=== PATIENT | female | born 1975 | race Caucasian/White ===

== ENCOUNTER 2022-08-16 08:29 | Outpatient (CLI) | payer OTHER, SELFPAY ==
--- NOTE | ~2022-08-16 | MM_ITS ---
EXAMINATION: MM screening yu BI w ying HISTORY: Screening mammogram TECHNIQUE: Craniocaudal and mediolateral oblique 3-D tomosynthesis images were obtained and synthetic 2-D images were generated. CAD analysis was submitted and interpreted. COMPARISON: 01/09/2019 limited right breast ultrasound 12/26/2018 bilateral screening mammogram BREAST PARENCHYMAL COMPOSITION: There are scattered areas of fibroglandular density. FINDINGS: Slightly diminished size of circumscribed previously reported probable benign fibroadenoma in the lateral subareolar area at approximately 9:00. There is no evidence of suspicious mass, calcif ication, or architectural distortion to suggest malignancy in either breast. There has been no suspic ious interval change. IMPRESSION: 1. No mammographic evidence of malignancy. 2. Recommend routine screening mammography in one year. BI-RADS Category 2: Benign finding(s). Reviewed, dictated and finalized at location A.
== END 2022-08-16 08:30 | disposition home or self-care (01) ==
LOC: ANHIMG 08:31
PROVIDERS: PCP Family Medicine; Visit Provider Obstetrics & Gynecology
DX: Z12.31 Encounter for screening mammogram for malignant neoplasm of breast (principal)
CPT/HCPCS: 77063; 77067

== ENCOUNTER 2023-08-05 11:12 | Outpatient (CLI) | payer OTHER, SELFPAY ==
--- NOTE | ~2023-08-05 | CT_ITS ---
CT of the Abdomen and Pelvis: Indication: Abdominal pain Technique: 2.5 mm axial scans were obtained through the abdomen and pelvis following intravenous adm inistration of 100 cc of Omnipaque 350. Dose reduction technique was used on this scan by utilizing a utomated exposure control and iterative reconstruction technique. The dose-length product (DLP) was 3 81.92 mGy-cm. Findings: Scans through the lung bases are unremarkable. The liver, spleen, pancreas, gallbladder, adrenals and kidneys are within normal limits. No evidence of aortic aneurysm. No lymphadenopathy. No bowel obstruction or bowel wall thickening. There is no evidence to suggest acute appendicitis. Images through the pelvis were performed. Urinary bladder unremarkable. Bilateral adnexal cysts are p resent, largest on the left side measuring 2.7 cm. Trace ascites. Impression: Small bilateral adnexal cysts, largest measuring 2.7 cm and the left side. Trace pelvic free fluid. Reviewed, dictated and finalized at location . ING DIRECTOR Impression: Small bilateral adnexal cysts, largest measuring 2.7 cm and the left side. Trace pelvic free fluid.
== END 2023-08-05 11:13 ==
LOC: MICIMG 11:12
PROVIDERS: PCP Physician Assistant Medical; Visit Provider Physician Assistant Medical
DX: R10.9 Unspecified abdominal pain (principal); N83.291 Other ovarian cyst, right side
CPT/HCPCS: 74177; Q9967

== ENCOUNTER 2023-08-13 09:10 | Outpatient (CLI) | payer OTHER, SELFPAY ==
--- NOTE | ~2023-08-13 | US_ITS ---
EXAMINATION: US pelvic complete w TV DATE: 08/13/2023 09:49 INDICATION: Bilateral ovarian cysts. TECHNIQUE: Multiple transabdominal and transvaginal sonographic images of the pelvis were obtained. COMPARISON: CT abdomen and pelvis 08/05/23 FINDINGS: TRANSABDOMINAL ULTRASOUND: The uterus measures 8.7 x 4.3 x 4.8 cm. There is physiologic free fluid in the pelvis. TRANSVAGINAL ULTRASOUND: The endometrial complex measures 11 mm in thickness. The right ovary measures 3.8 x 3.3 x 3.2 cm. The left ovary measures 4.2 x 2.0 x 2.4 cm. There is a 2.8 cm hemorrhagic cyst with low level echoes in right ovary. There is normal vascular flow in the ovaries. IMPRESSION: 1. 2.8 cm hemorrhagic cyst in right ovary. Reviewed, dictated and finalized at location E. ET RESEARCHER
== END 2023-08-13 09:11 ==
PROVIDERS: PCP Obstetrics & Gynecology; Visit Provider Obstetrics & Gynecology
DX: N83.201 Unspecified ovarian cyst, right side (principal)
CPT/HCPCS: 76830; 76856

== ENCOUNTER 2023-09-03 08:43 | Outpatient (CLI) | payer OTHER, SELFPAY ==
--- NOTE | ~2023-09-03 | US_ITS ---
EXAMINATION: US thyroid DATE: 09/03/2023 09:01 INDICATION: Nontoxic multinodular goiter. TECHNIQUE: Multiple ultrasound images of the thyroid were obtained. COMPARISON: Ultrasound 07/09/2016 FINDINGS: The right thyroid lobe measures 5.3 x 1.5 x 1.4 cm. The left thyroid lobe measures 5.1 x 1.6 x 1.3 c m. In the right thyroid lobe, there is a 6 mm cystic and solid, isoechoic, wider than tall nodule wi th ill-defined margin without echogenic foci (TI-RADS TR2). In the left thyroid lobe, there is a 6 mm mixed cystic and solid, hypoechoic, wider than tall nodule with ill-defined margin without echogenic foci (TR3). In the left thyroid lobe, there is a 6 mm solid, hypoechoic wider than tall nodule with smooth margin without echogenic foci (TR4). IMPRESSION: 1. Small thyroid nodules, likely not clinically significant. No follow-up is needed. Reviewed, dictated and finalized at location A. IMPRESSION: 1. Small thyroid nodules, likely not clinically significant. No follow-up is ne eded.
== END 2023-09-03 08:44 ==
PROVIDERS: PCP Internal Medicine; Visit Provider Internal Medicine
DX: E04.2 Nontoxic multinodular goiter (principal)
CPT/HCPCS: 76536

== ENCOUNTER 2024-07-16 07:42 | Day surgery (SDC) | payer OTHER, SELFPAY ==
[2024-06-25 14:05] VITALS: BMI 20.7
[2024-07-16 08:43] VITALS: BP 109/73; PULSE 83; RESP 16; TEMP 36.6; O2SAT 100; BMI 19.9
[2024-07-16] MEDS: LACTATED RINGERS 1,000 ML 150 ML IV CONT (08:51)
--- NOTE | 2024-07-16 08:56 | P.PNAN_ITS ---
Anes - Initial Pre Proc Eval Procedure: Operation Date: 07/16/24 09:30 Proposed Procedures p Screening Colonoscopy - Max Munroe MD Date/Time: 07/16/24 08:56 Surgeon: Max Munroe MD Pre Op Diagnosis: Neoplasm Screening Patient Data Age: 48 Gender: F Height: 1.65 m Weight: 54.4 kg Last Vital Signs Temp 36.6 C 07/16/24 08:43 Pulse 83 07/16/24 08:43 Resp 16 07/16/24 08:43 BP 109/73 07/16/24 08:43 Pulse Ox 100 07/16/24 08:43 O2 Del Method Room Air 07/16/24 08:43 Allergies Allergy/AdvReac Type Severity Reaction Status Date / Time No Known Allergies Allergy Verified 06/25/24 13:56 Home Medications ?Medication ?Instructions ?Recorded ?Confirmed ?Type ibuprofen 800 mg tablet 800 mg PO TID 08/29/23 06/25/24 History rizatriptan 10 mg disintegrating See Rx Instructions PO .COMPLEX 02/21/24 06/25/24 Rx tablet (Maxalt-ACCESSIBILITY LIFT TECHNICIAN) #14 tabs erenumab-aooe 140 mg/mL 140 mg subcut MONTHLY #1 mL 06/19/24 07/16/24 Rx subcutaneous auto-injector (Aimovig Autoinjector) Patient hx anesthesia problems: none Family hx anesthesia problems: none Results Review: All pre-operative results and documents have been reviewed as part of the pre- operative evaluation. PMFSH Past Medical History Medical History BMI 20.0-20.9, adult Breast cancer screening Thyroid nodule Encounter for preventive health examination Ear congestion Chronic back pain Follow up Colon cancer screening On termite control servicer drug therapy Rectal pain Insomnia Palpitations Multiple thyroid nodules Pre-diabetes Migraines Hot flashes Encounter to establish care Personal history of nicotine dependence DJD (degenerative joint disease) BMI 21.0-21.9, adult Constipation Thyroid lump Irritation of clitoris Abnormal mammogram History of vaginal delivery x 2 Surgical History Surgical History (Updated 07/16/24 @ 08:56 by Jose Sarabia MD) H/O laparoscopy History of section x 1 Family History Family History Grandparent Cerebrovascular accident Family history of pulmonary embolism Sibling Cancer kidney cancer @ 43. Son Asthma Mother Hyperlipidemia Endometriosis Other Family history of malignant neoplasm of breast Social History Social History (Updated 07/16/24 @ 08:56 by Jose Sarabia MD) Smoking status: Former smoker Tobacco type: cigarettes Second hand tobacco smoke exposure: No Smoking end date: 06/06/03 Alcohol intake: current Substance use: never Substance use type: does not use Lack of Transportation: No Lack of Food: Never True Current Housing: I Have Housing Concerned About Future Housing: No Difficulty Paying Gas/Electric Bills: No Difficulty Paying for Meds: No Currently Unemployed: No Education: High School Diploma/GED Living arrangements: with family Spiritual care concerns: No Anes - Eval Final PreProcedure Day of Procedure 07/16/24 08:56 Patient weight: normal Heart: regular rate and rhythm Lungs: clear to auscultation Airway: Mallampati scale class II Neurological: alert and oriented Last oral intake: >/= 8 hours ASA classification: II Emergent: no Anesthetic plan: proceed Anesthesia type and monitoring: general GIVS and standard monitoring Results Review: All pre-operative results and documents have been reviewed as part of the pre- operative evaluation. Informed Consent: The patient's anesthetic plan and its attendant risks and benefits were discussed with the patient/family/POA. Questions were solicited and answers provided to the satisfaction of the patient/family/POA.
--- NOTE | 2024-07-16 09:17 | PM.IMHP ---
H&P: HPI History of Present Illness Date/Time: 07/16/24 09:17 Chief Complaint: Screening colonoscopy Narrative: This is the patient's first colonoscopy. There are no GI symptoms and there is no family history of colorectal cancer. Review of Systems Review of Systems: All systems reviewed & are unremarkable except as noted in HPI and below PMFSH Past Medical History Medical History BMI 20.0-20.9, adult Breast cancer screening Thyroid nodule Encounter for preventive health examination Ear congestion Chronic back pain Follow up Colon cancer screening On ferry terminal supervisor drug therapy Rectal pain Insomnia Palpitations Multiple thyroid nodules Pre-diabetes Migraines Hot flashes Encounter to establish care Personal history of nicotine dependence DJD (degenerative joint disease) BMI 21.0-21.9, adult Constipation Thyroid lump Irritation of clitoris Abnormal mammogram History of vaginal delivery x 2 Surgical History Surgical History (Updated 07/16/24 @ 08:56 by Jose Sarabia MD) H/O laparoscopy History of section x 1 Family History Family History Grandparent Cerebrovascular accident Family history of pulmonary embolism Sibling Cancer kidney cancer @ 43. Son Asthma Mother Hyperlipidemia Endometriosis Other Family history of malignant neoplasm of breast Social History Social History (Updated 07/16/24 @ 08:56 by Jose Sarabia MD) Smoking status: Former smoker Tobacco type: cigarettes Second hand tobacco smoke exposure: No Smoking end date: 06/06/03 Alcohol intake: current Substance use: never Substance use type: does not use Lack of Transportation: No Lack of Food: Never True Current Housing: I Have Housing Concerned About Future Housing: No Difficulty Paying Gas/Electric Bills: No Difficulty Paying for Meds: No Currently Unemployed: No Education: High School Diploma/GED Living arrangements: with family Spiritual care concerns: No Meds Home Medications and Allergies Home Medications ?Medication ?Instructions ?Recorded ?Confirmed ?Type ibuprofen 800 mg tablet 800 mg PO TID 08/29/23 06/25/24 History rizatriptan 10 mg disintegrating See Rx Instructions PO .COMPLEX 02/21/24 06/25/24 Rx tablet (Maxalt-CUSTODIAN SUPERVISOR) #14 tabs erenumab-aooe 140 mg/mL 140 mg subcut MONTHLY #1 mL 06/19/24 07/16/24 Rx subcutaneous auto-injector (Aimovig Autoinjector) Allergies Allergy/AdvReac Type Severity Reaction Status Date / Time No Known Allergies Allergy Verified 06/25/24 13:56 Vital Signs Vital Signs - 24 hr 07/16/24 08:43 Temperature 97.8 F Pulse Rate 83 Respiratory Rate 16 Blood Pressure 109/73 Pulse Oximetry 100 Oxygen Delivery Room Air Exam Const: General: cooperative and healthy appearing Resp: Effort & Inspection: normal respiratory effort and able to speak in complete sentences Auscultation: clear to auscultation bilaterally Cardio: Rate: regular rate Rhythm: regular rhythm GI: Inspection: normal to inspection GI Palp: No No hepatosplenomegaly present Auscultation: normal bowel sounds Rectal Exam: deferred Skin: General skin exam: normal color Psych: Appearance: grossly normal Mental Status: mental status grossly normal Assessment and Plan Assessment and plan (1) Colon cancer screening: Code(s): Z12.11 - Encounter for screening for malignant neoplasm of colon Status: Acute Assessment and Plan: The patient is deemed a good candidate for the procedure. Consent signed. Will proceed.
[2024-07-16 09:45] VITALS: BP 89/66; PULSE 80; RESP 16; O2SAT 99
[2024-07-16 09:55] VITALS: BP 96/72; PULSE 77; RESP 16; O2SAT 100
[2024-07-16 10:05] VITALS: BP 103/68; PULSE 68; RESP 16; O2SAT 100
--- NOTE | 2024-07-16 10:12 | WPDANESPN ---
Anes - Prog Note Post-Op Date/Time: 07/16/24 10:12 Cardiovascular status: normal Respiratory status: normal Airway patency: baseline Mental status: baseline Post-Op hydration status: normal Vital Signs: Last Vital Signs Temp 36.6 C 07/16/24 08:43 Pulse 77 07/16/24 09:55 Resp 16 07/16/24 09:55 BP 96/72 L 07/16/24 09:55 Pulse Ox 100 07/16/24 09:55 O2 Del Method Room Air 07/16/24 09:55 Pain Score (VAS): 0/10 I/O: Intake & Output 07/15/24 07/16/24 07/16/24 23:59 07:59 15:59 Intake Total 300 Balance 300 Patient Feedback: Patient satisfied with anesthetic care.
== END 2024-07-16 10:20 | disposition home or self-care (01) ==
PROVIDERS: PCP Internal Medicine; Visit Provider Internal Medicine Gastroenterology
PROC: 0DJD8ZZ Inspection of Lower Intestinal Tract, Via Natural or Artificial Opening Endoscopic (ICD-10-PCS; CPT 45378; principal; 2024-07-16 09:30)
DX: Z12.11 Encounter for screening for malignant neoplasm of colon (principal)
CPT/HCPCS: 45378

== ENCOUNTER 2024-12-19 14:34 | Outpatient (CLI) | payer OTHER, SELFPAY ==
--- NOTE | ~2024-12-19 | XR_ITS ---
EXAM: XR sinus min 3V DATE: 12/19/2024 15:12 HISTORY: R09.89 - Other specified symptoms and signs involving the... . COMPARISON: None available. FINDINGS: Normal mineralization. Intact and symmetric orbits. The aerated spaces are clear. No fractu re. No lytic or blastic lesion. No abnormal intracranial calcification. IMPRESSION: Normal sinus radiograph findings. Reviewed, dictated and finalized at location K.
--- NOTE | ~2024-12-19 | CT_ITS ---
Clinical Indication: Abnormal weight loss CT Scan of the Chest, Abdomen, and Pelvis with Contrast: Technique: Contiguous sections were acquired throughout the chest, abdomen, and pelvis after intraven ous administration of 100 cc of Omnipaque 350. Dose reduction technique was used on this scan by laverne urrutia automated exposure control and iterative reconstruction technique. The dose-length product (DL P) was 310.71 mGy-cm. Comparison: 08/05/2023 Findings: There is no evidence of any significant mediastinal, hilar or axillary lymphadenopathy. The mediastin al soft tissues and vascular structures appear normal. There is no evidence of pleural or pericardial effusion. The lungs are clear. No pulmonary nodules or infiltrates are noted. The liver, spleen, pancreas, gallbladder, adrenals and kidneys are within normal limits. No evidence of aortic aneurysm. No lymphadenopathy. No bowel obstruction or bowel wall thickening. There is no evidence to suggest acute appendicitis. Urinary bladder is unremarkable. No pelvic mass evident. No ascites. Impression: No significant abnormalities seen. Reviewed, dictated and finalized at [facility]. Impression: No significant abnormalities seen.
== END 2024-12-19 14:35 | disposition home or self-care (01) ==
LOC: MICIMG 14:35
PROVIDERS: PCP Internal Medicine; Visit Provider Internal Medicine
DX: R09.89 Other specified symptoms and signs involving the circulatory and respiratory systems (principal); R63.4 Abnormal weight loss
CPT/HCPCS: 70220; 71260; 74177; Q9967

== ENCOUNTER 2025-05-13 15:22 | Outpatient (CLI) | payer OTHER, SELFPAY ==
--- NOTE | ~2025-05-13 | MM_ITS ---
EXAMINATION: MM screening yu BI w ying HISTORY: Screening. TECHNIQUE: Craniocaudal and mediolateral oblique 3-D tomosynthesis images were obtained and synthetic 2-D images were generated. CAD analysis was submitted and interpreted. COMPARISON: 2022 and 2018 BREAST PARENCHYMAL COMPOSITION: Dense: The breasts are heterogeneously dense. This may obscure small masses. FINDINGS: No suspicious masses are seen. There are no suspicious calcifications. No unexplained architectural distortion is seen. There are no skin or nipple abnormalities identified. There is no adenopathy seen on the images submitted. IMPRESSION: No mammographic evidence to suggest malignancy is seen. The patient may return to screening mammography as per ACR guidelines. BI-RADS 1 - Negative. Reviewed, dictated and finalized at location B. STMENT SPECIALIST
== END 2025-05-13 15:23 | disposition home or self-care (01) ==
LOC: ANHFOHIMG 15:23
PROVIDERS: PCP Internal Medicine; Visit Provider Obstetrics & Gynecology
DX: Z12.31 Encounter for screening mammogram for malignant neoplasm of breast (principal)
CPT/HCPCS: 77063; 77067